=== PATIENT | male | born 1955 | race African-American/Black ===

== ENCOUNTER 2024-10-27 08:39 | Inpatient (IN) | payer MEDICAID ==
[~2024-10-27] VITALS: Ht 182.9 cm; Wt 64.9 kg
[2024-10-27] MEDS ORDERED: AZITHROMYCIN 500MG/250ML 250 ML IV STA (09:19)
[2024-10-27] MEDS ORDERED: IPRATROPIUM BROMIDE (0.02%) 0.5MG/2.5ML NEB HHN STA (09:19)
[2024-10-27] MEDS: CEFTRIAXONE 1GM/50ML 50 ML IV ONE (09:35)
[2024-10-27] MEDS: METHYLPREDNISOLONE SOD SUCC 125MG/2ML (ACT-O-VIAL) IV STA (09:35)
[2024-10-27 09:47] LABS: CHLORIDE 98 mEq/L (98-107); POTASSIUM 4.3 mEq/L (3.5-5.1); SODIUM 135 mEq/L (136-145)
[2024-10-27 09:49] LABS: CALCIUM 9.1 mg/dL (8.7-10.4); CARBON DIOXIDE 31 mEq/L (21-32)
[2024-10-27 09:54] LABS: CREATININE 0.8 mg/dL (0.6-1.3); GLUCOSE 323 mg/dL (70-105); UREA NITROGEN BLOOD 5 mg/dL (9-23)
[2024-10-27 09:56] LABS: ALANINE AMINOTRANSFERASE 10 IU/L (10-49); ALBUMIN 3.4 g/dL (3.2-4.8); ASPARTATE AMINOTRANSFERASE 10 IU/L (<34); BILIRUBIN TOTAL 0.4 mg/dL (0.1-1.0); PROTEIN TOTAL 7.8 g/dL (6.0-8.3)
[2024-10-27 09:57] LABS: BILIRUBIN DIRECT 0.1 mg/dL (<=3.0); TROPONIN I HIGH SENSITIVITY < 4 ng/L (3.0-53)
[2024-10-27 09:58] LABS: BASOPHILS % 0.2 % (0.0-2.0); EOSINOPHILS % 0.3 % (0.0-5.0); HEMATOCRIT. 29.9 % (42.0-52.0); HEMOGLOBIN. 9.7 g/dL (14.0-18.0); LYMPHOCYTES % 16.4 % (20.0-50.0); MEAN CORPUSCULAR HEMOGLOBIN 29.7 pg (28.0-32.0); MEAN CORPUSCULAR HGB CONC 32.6 g/dL (31.0-37.0); MEAN CORPUSCULAR VOLUME 91.1 fL (80.0-94.0); MEAN PLATELET VOLUME 7.8 fl (7.4-10.4); MONOCYTES % 9.3 % (2.0-8.0); NEUTROPHILS % 73.8 % (40.0-76.0); PLATELET 377 x1000/uL (130-400); RED BLOOD CELL COUNT 3.28 mill/uL (4.7-6.1)
[2024-10-27 10:23] VITALS: PULSE 72; RESP 18; O2SAT 98
[2024-10-27] MEDS: ALBUTEROL (0.083%) 2.5MG/3ML NEB HHN SCH (10:23)
[2024-10-27] MEDS: IPRATROPIUM BROMIDE (0.02%) 0.5MG/2.5ML NEB HHN NR (10:23)
[2024-10-27] MEDS: AZITHROMYCIN 500MG/250ML 250 ML IV NR (10:31)
[2024-10-27] MEDS ORDERED: DEXTROSE 50% WATER 50ML SYRINGE IV PRN (15:00)
[2024-10-27] MEDS ORDERED: IPRATROPIUM/ALBUTEROL 0.5-3(2.5)MG/3ML NEB HHN PRN (15:00)
[2024-10-27] MEDS: METHYLPREDNISOLONE SOD SUCC 125MG/2ML (ACT-O-VIAL) IV SCH (16:00)
[2024-10-27 17:00] VITALS: BP 121/61; PULSE 94; RESP 20; TEMP 36.5; O2SAT 94
[2024-10-27 17:44] VITALS: BP 121/61; PULSE 94; RESP 20; TEMP 36.5
[2024-10-27 18:06] LABS: *AMPHETAMINES SCREEN URINE NEGATIVE (NEGATIVE); *BARBITURATES SCREEN URINE NEGATIVE (NEGATIVE); *BENZODIAZEPINES SCREEN URINE NEGATIVE (NEGATIVE); *COCAINE SCREEN URINE NEGATIVE (NEGATIVE); METHADONE URINE SCREEN NEGATIVE (NEGATIVE); OPIATES URINE SCREEN NEGATIVE (NEGATIVE); PHENCYCLIDINE URINE SCREEN NEGATIVE (NEGATIVE)
[2024-10-27 18:07] LABS: CANNABINOID URINE SCREEN NEGATIVE (NEGATIVE); ECSTASY MDMA SCREEN URINE NEGATIVE (NEGATIVE)
[2024-10-27] MEDS: INSULIN LISPRO 100 UNITS/ML SUBCUT SCH (18:22)
[2024-10-27] MEDS: BLOOD SUGAR DIAGNOSTIC STRIP TEST SCH (18:22)
[2024-10-27 20:00] VITALS: BP 111/64; PULSE 91; RESP 20; TEMP 36.3; O2SAT 99
[2024-10-27 22:07] LABS: BG BASE EXCESS 5.3 mmol/L (-2.0-3.0); BG CARBOXYHEMOGLOBIN 0.6 % (0.5-1.5); BG DEOXYHEMOGLOBIN 5.7 % (0.0-5.0); BG FRACTION INSPIRED OXYGEN 21; BG HCO3 ACT 28.9 mmol/L (21.0-28.0); BG METHEMOGLOBIN 0.3 % (0.5-1.5); BG OXYGEN SATURATION 94.2 % (94.0-98.0); BG OXYHEMOGLOBIN 93.4 % (94.0-98.0); BG PCO2 38.5 mmHg (35.0-48.0); BG PH 7.493 (7.350-7.450); BG PO2 69.8 mmHg (83.0-108.0); BG SAMPLE SITE RIGHT RADIAL; BG TOTAL HEMOGLOBIN 11.3 g/dL (13.5-17.5); BG VENT MODE ROOM AIR
[2024-10-27] MEDS ORDERED: INFLUENZA VACCINE 05/PF 0.5 ML SYRINGE IM ONE (22:45)
[2024-10-27] MEDS ORDERED: PNEUMOCOCCAL 20-VAL CONJ-DIP CRM 0.5ML IM ONE (22:45)
[2024-10-28] VITALS (8 sets, daily range): BP systolic 91–108; BP diastolic 42–65; PULSE 78–99; RESP 16–22; TEMP 36.2–37; O2SAT 95–100
[2024-10-28] MEDS ORDERED: CEFTRIAXONE 2GM/50ML 50 ML IV SCH (09:00)
[2024-10-28] MEDS: IPRATROPIUM/ALBUTEROL 0.5-3(2.5)MG/3ML NEB HHN SCH (09:49)
[2024-10-28] MEDS: CEFTRIAXONE 2GM/50ML 50 ML IV SCH (10:10)
[2024-10-28] MEDS: INSULIN GLARGINE 100 UNITS/ML SUBCUT SCH (10:19)
[2024-10-28] MEDS: METHYLPREDNISOLONE SOD SUCC 40MG/ML (ACT-O-VIAL) IV SCH (23:07)
[2024-10-29] VITALS (9 sets, daily range): BP systolic 93–121; BP diastolic 54–67; PULSE 71–89; RESP 16–20; TEMP 36.4–36.8; O2SAT 95–99
[2024-10-29] MEDS: METHYLPREDNISOLONE SOD SUCC 40MG/ML (ACT-O-VIAL) IV SCH (21:00)
[2024-10-30] VITALS (7 sets, daily range): BP systolic 97–105; BP diastolic 49–73; PULSE 59–92; RESP 16–19; TEMP 36.4–36.7; O2SAT 95–98
== END 2024-10-30 17:00 | disposition hospice, home (50) | DRG 177 ==
LOC: ER 08:39 → 7WST 10:35 → EDBEDREQ 10:43 → EDBEDREQTM 10:43
PROVIDERS: ADMIT Internal Medicine; ATTEND Internal Medicine
DX: J85.2 Abscess of lung without pneumonia (principal); J96.01 Acute respiratory failure with hypoxia; J96.02 Acute respiratory failure with hypercapnia; J44.1 Chronic obstructive pulmonary disease with (acute) exacerbation; J84.9 Interstitial pulmonary disease, unspecified; E11.65 Type 2 diabetes mellitus with hyperglycemia; I10 Essential (primary) hypertension; J43.9 Emphysema, unspecified; G89.29 Other chronic pain; Z51.5 Encounter for palliative care; Z87.891 Personal history of nicotine dependence; Z99.81 Dependence on supplemental oxygen
CPT/HCPCS: 36415; 36600; 71045; 71250; 80048; 80076; 80305; 82375; 82805; 82962; 83036; 84484; 85025; 93005; 94070; 94640; 94664; 94760; 98960; 99291; A4606; J0456; J0696; J1815; J2919; J2920